=== PATIENT | male | born 1940 | race Caucasian/White ===

== ENCOUNTER 2018-05-12 09:30 | Inpatient (IN) | payer MEDICARE ==
[~2018-05-12] VITALS: Ht 180.3 cm; Wt 99.3 kg
[2018-05-12 09:40] VITALS: BP 178/96
[2018-05-12] MEDS ORDERED: COUMADIN7.5 MG PO (09:58)
[2018-05-12] MEDS ORDERED: COUMADIN 5 MG TA5 M1 PO (09:58)
[2018-05-12] MEDS ORDERED: KLOR-CON 1010 MEQ PO (09:59)
[2018-05-12] MEDS ORDERED: CARVEDILOL12.5 MG PO (09:59)
[2018-05-12 10:15] LABS: BE 2.2 mmol/L (-2 to +3); HCO3 26.4 mmol/L (22.0-26.0); PCO2 39.9 mmHg (35.0-45.0); pH 7.439 (7.340-7.450)
[2018-05-12 10:17] LABS: HEMATOCRIT 34.6 % (42.0-52.0); HEMOGLOBIN 11.1 gm/dL (14.0-18.0); MCH 29.1 pg (26.0-34.0); MCHC 32.2 g/dL (28.0-37.0); MCV 90.2 fL (80.0-100.0); MPV 7.7 fl. (7.2-11.1); NUCLEATED RBCS 0 /100WBC; PLATELET COUNT* 165 thou/uL (150-400); RBC 3.84 mil/uL (4.50-6.00)
[2018-05-12 10:18] LABS: PO2 51.6 mmHg (75.0-100.0)
[2018-05-12 10:22] LABS: APTT 39.9 Seconds (25.0-31.3); INR 2.7; PROTIME 27.4 Seconds (9.20-11.50)
[2018-05-12 11:02] LABS: CALCIUM 8.5 mg/dL (8.5-10.1); CREATININE 1.1 mg/dL (0.6-1.3); POTASSIUM 4.1 mmol/L (3.5-5.1)
[2018-05-12 11:07] LABS: ALBUMIN 3.2 g/dL (3.4-5.0); TOTAL BILIRUBIN 1.3 mg/dL (<0.1-1.0); TOTAL PROTEIN 8.5 g/dL (6.4-8.2)
[2018-05-12 11:41] LABS: ABSOLUTE BASOPHILS 0.1 thou/uL (0.0-0.2); ABSOLUTE EOSINOPHILS 0.1 thou/uL (0.0-0.7); ABSOLUTE LYMPHOCYTES 0.3 thou/uL (0.8-5.3); ABSOLUTE MONOCYTES 0.3 thou/uL (0.0-1.2); ABSOLUTE NEUTROPHILS 4.4 thou/uL (1.6-8.1); PLATELET ESTIMATE ADEQUATE
[2018-05-12 11:42] LABS: HYPOCHROMASIA Occasional; MACROCYTES Occasional
[2018-05-12 11:43] LABS: CLUMPED PLTS RARE; POLYCHROMASIA 1+
[2018-05-12 12:27] LABS: NT-PRO BRAIN NAT PEPTIDE 1718 pg/mL (<300); TROPONIN-I LEVEL <0.06 ng/mL (<0.06)
--- NOTE | 2018-05-12 14:39 | EKG ---
[place] [address] ELECTROCARDIOGRAM REPORT Name: QASIM CABA Room: [place] [address] ADM IN [facility].#: [id number] Admission: 05/12/18 Attend Phys: Nils Patino MD Discharge: Date of : 36 Report #: [id number] THIS REPORT FOR: //name// [facility] ED Test Date: 2018-05-12 Test Time: 09:42:28 Pat Name: QASIM CABA Department: Room: [facility] Gender: Talent Manager: Matthew HERCULES : 1940 Requested By: Sandie Rogers Order Number: [id number] MD: Urbano Frederick Measurements Intervals [place] Rate: 96 P: [place]: QRS: -41 QRSD: 112 T: 133 QT: 385 QTc: 487 Interpretive Statements Atrial fibrillation LAFB Borderline prolonged QT interval No previous ECG available for comparison Electronically Signed On 05-12-2018 14:38:52 TRENCH P[employer] by Urbano Frederick [email or web address] <ELECTRONICALLY SIGNED> By: Urbano Frederick MD, [facility] 05/12/18 1438 1 1 Urbano Frederick MD, FACC /EPI
--- NOTE | 2018-05-12 15:33 | 2DMMODE ---
[place] [address] 2 D/M-MODE ECHOCARDIOGRAM Name: QASIM CABA Room: [address] IN [facility]#: [id number] Admission: 05/12/18 Attend Phys: Nils Patino, Discharge: Date of : 36 Date of Service: 05/12/18 1533 Report #: [id number] THIS REPORT FOR: //name// ADDENDUM APPROVED REPORT Study performed: 05/12/2018 14:14:27 EXAM: Comprehensive 2D, Doppler, and color-flow Echocardiogram Patient Location: In-Patient Room #: er Status: routine BSA: 2.26 HR: 89 bpm BP: 171/94 mmHg Rhythm: NSR Other Information Study Quality: Good Indications CVA/TIA Echo Enhancing Agent Indication: Rule out Shunt Agent(s) / Amount(s) Used: Agitated Saline 10 cc 2D Dimensions IVSd: 13.69 (7-11mm) LVOT Diam: 23.52 (18-24mm) LVDd: 53.05 mm PWd: 13.57 (7-11mm) Ascending Ao: 40.13 (22-36mm) LVDs: 40.21 (25-40mm) Aortic Root: 34.78 mm Volumes Left Atrial Volume (Systole) LA ESV Index: 70.10 mL/m2 Aortic Valve AoV Peak Dusty.: 2.39 m/s AO Peak Gr.: 22.77 mmHg LVOT Max P.35 mmHg AO Mean Gr.: 12.66 mmHg LVOT Mean P.68 mmHg LVOT Max V: 0.58 m/s AO V2 VTI: 44.36 cm LVOT Mean V: 0.38 m/s JOSIAH (VTI): 1.13 cm2 LVOT V1 VTI: 11.49 [place] [address] 2 D/M-MODE ECHOCARDIOGRAM Name: QASIM CABA Room: [address] IN [facility]#: [id number] Admission: 05/12/18 Attend Phys: Nils Patino, Discharge: Date of : 36 Date of Service: 05/12/18 1533 Report #: [id number] Mitral Valve MV Mean Gr.: 5.72 mmHg MV Decel. Time: 123.71 ms MV PHT: 35.88 ms MVA (PHT): 6.13 cm2 TDI Medial E' Dusty.: 0.08 m/s Lateral E' Dusty.: 0.10 m/s Pulmonary Valve PV Peak Dusty.: 0.94 m/s PV Peak Gr.: 3.51 mmHg Tricuspid Valve RAP Estimate: 15.00 mmHg TR Peak Gr.: 54.26 mmHg RVSP: 69.00 mmHg PA Pressure: 69.00 mmHg Left Ventricle The left ventricle is normal size. There is normal LV segmental wall motion. Mild concentric left ventricular hypertrophy. Left ventricular systolic function is normal. LVEF is 50-55%. This study is not technically sufficient to allow evaluation of the LV diastolic function due to atrial fibrillation. Right Ventricle Right ventricle is moderately dilated. The right ventricular systolic function is normal. Atria Left atrium is severely dilated. Interatrial septum is intact without evidence of ASD or PFO. Right atrium is moderately dilated. Aortic Valve Severe aortic valve sclerosis. No aortic regurgitation is present. Severe aortic stenosis. Mitral Valve The mitral valve is normal in structure. 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 There is no mitral valve regurgitation noted. No evidence of mitral valve stenosis. Tricuspid Valve The tricuspid valve is normal in structure. Mild tricuspid regurgitation. [place] [address] 2 D/M-MODE ECHOCARDIOGRAM Name: ROSALESQASIM D Room: [address] IN [facility]#: [id number] Admission: 05/12/18 Attend Phys: Nils Patino, Discharge: Date of : 36 Date of Service: 05/12/18 1533 Report #: [id number] Pulmonic Valve The pulmonary valve is normal in structure. Mild pulmonic regurgitation. Great Vessels The aortic root is normal in size. The ascending aorta is mildly dilated. IVC is dilated and collapses <50% with inspiration. Pericardium There is no pericardial effusion. <Conclusion> The left ventricle is normal size. Mild concentric left ventricular hypertrophy. Left ventricular systolic function is normal. LVEF is 50-55%. Right ventricle is moderately dilated. Left atrium is severely dilated. Right atrium is moderately dilated. Severe aortic valve sclerosis. Severe aortic stenosis. 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 There is no mitral valve regurgitation noted. No evidence of mitral valve stenosis. Mild tricuspid regurgitation. Severe pulmonary hypertension. IVC is dilated and collapses <50% with inspiration. Interatrial septum is intact without evidence of ASD or PFO. The ascending aorta is mildly dilated. <ELECTRONICALLY SIGNED> By: Isac Santa MD, FACC 05/12/18 1533 [id number] Isac Santa MD, FACC /INF
[2018-05-12 17:08] VITALS: BP 162/75
[2018-05-12 17:45] VITALS: BP 128/70
[2018-05-12 19:00] LABS: URINE BILIRUBIN NEGATIVE (Negative); URINE BLOOD 3+ (Negative); URINE COLOR YELLOW; URINE GLUCOSE-RANDOM NEGATIVE (Negative); URINE KETONES NEGATIVE (Negative); URINE LEUKOCYTES-REFLEX NEGATIVE (Negative); URINE NITRITE-REFLEX NEGATIVE (Negative); URINE PROTEIN NEGATIVE (Negative); URINE SPECIFIC GRAVITY 1.015 (1.005-1.030); URINE UROBILINOGEN 0.2 E.U./dl (0.2-1.0)
[2018-05-12 19:01] LABS: URINE CLARITY HAZY
[2018-05-12 19:11] LABS: SQUAMOUS 4-10 Moderate /LPF (0-3)
[2018-05-12 19:12] LABS: BACTERIA-REFLEX 1-9 Few /HPF (None Seen); CASTS None Seen /LPF (None Seen); CRYSTALS None Seen /LPF (None Seen); URINE RBC >20 Many /HPF (0-2); URINE WBC-REFLEX 6-15 Few /HPF (0-5)
[2018-05-12] MEDS ORDERED: FUROSEMIDE 40 M40 M1 PO (19:43)
[2018-05-12 21:02] VITALS: BP 108/70
[2018-05-12 22:11] LABS: GLYCOHEMOGLOBIN (HGB A1C) 6.7 % (4.8-5.6)
[2018-05-12 23:01] VITALS: BP 132/75
[2018-05-13 04:00] VITALS: BP 112/71
[2018-05-13 04:43] LABS: HEMATOCRIT 32.2 % (42.0-52.0); HEMOGLOBIN 10.3 gm/dL (14.0-18.0); MCH 29.1 pg (26.0-34.0); MCHC 32.1 g/dL (28.0-37.0); MCV 90.8 fL (80.0-100.0); MPV 7.5 fl. (7.2-11.1); RBC 3.54 mil/uL (4.50-6.00); RDW-CV 18.9 % (10.5-14.5); WBC 5.3 thou/uL (4.0-11.0)
[2018-05-13 05:09] LABS: CHOLESTEROL 109 mg/dL (<200); HDL CHOLESTEROL 31 mg/dL (>40); LDL CHOLESTEROL 67 mg/dL (<100); TC:HDL 3.5 Ratio (Not establshd); TRIGLYCERIDE 56 mg/dL (<150); VLDL 11 mg/dL (<40)
[2018-05-13 05:11] LABS: SERUM ASSESSMENT Clear
[2018-05-13 05:12] LABS: CALCIUM 8.4 mg/dL (8.5-10.1); POTASSIUM 3.6 mmol/L (3.5-5.1)
[2018-05-13 08:00] VITALS: BP 138/75
[2018-05-13 12:00] VITALS: BP 94/54
[2018-05-13 15:36] VITALS: BP 122/66
[2018-05-13 20:00] VITALS: BP 107/56
[2018-05-14] VITALS (7 sets, daily range): BP systolic 87–139; BP diastolic 48–72
[2018-05-14 05:30] LABS: PROTIME 20.1 Seconds (9.20-11.50)
[2018-05-14 05:36] LABS: CALCIUM 8.1 mg/dL (8.5-10.1)
--- NOTE | 2018-05-14 10:08 | CON ---
[facility] [address] [place] [address] CONSULTATION Name: QASIM CABA Room: [address] IN .R.#: [id number] Admission: 05/12/18 Attend Phys: Nils Patino MD Discharge: Date of : 36 Report #: [id number] THIS REPORT FOR: //name// CC: IVY physician/PCP Nils Sifuentes DATE OF SERVICE: 05/13/2018 CARDIOLOGY CONSULTATION HISTORY OF PRESENT ILLNESS: The patient is an 78-year-old single white male who I was asked to see in the hospital today after he had a syncopal spell. Unfortunately, no old records are available. The patient states that about 10 years ago, he was short of breath. He apparently underwent 5-vessel coronary artery bypass surgery and valve replacement using a metallic valve. He has been on warfarin since that time. He is currently followed by Dr. Sifuentes at [facility]. He stays fairly active, work in his car shop. He denies recent chest pain, shortness of breath. He has had an irregular heartbeat in the past. He last saw Dr. Sifuentes about 6 months ago, at which time he apparently had an echocardiogram. He was doing well until 2 nights ago. He apparently tripped and fell in the living room. He then went to bed. When he got up during the night, he went to the bathroom. He urinated sitting down. When he got up, he apparently had a syncopal spell and fell to the ground. He struck his hip and his elbow. His son brought him to the Emergency Room. He was admitted for further evaluation and treatment. He denied any recent vomiting, bleeding. He denied any palpitations or seizure activity. PAST MEDICAL HISTORY: Significant only for an appendectomy. He has a history of hypertension and hyperlipidemia. MEDICATIONS: On admission included warfarin, carvedilol. He takes Lasix for occasional edema and potassium pill. ALLERGIES: He has an intolerance to STATIN DRUGS AND PENICILLIN. FAMILY HISTORY: Positive for heart disease. SOCIAL HISTORY: He is , lives with a son in [place]. He still works at his car shop. No smoking or alcohol abuse. REVIEW OF SYSTEMS: He apparently had a stroke several years ago affecting his hearing. He has had no history of asthma, peptic ulcer disease, liver disease, kidney disease, cancer, psychiatric illness. He does have chronic edema. PHYSICAL EXAMINATION: [place] [address] CONSULTATION Name: QASIM CABA Room: [address]#: [id number] Admission: 05/12/18 Attend Phys: Nils Patino MD Discharge: Date of : 36 Report #: [id number] GENERAL: Revealed an elderly male, lying in bed. He appeared in no distress. VITAL SIGNS: He had a blood pressure of 140/70, pulse 70, he is afebrile. HEENT: He was anicteric. Conjunctivae pink. Mucous membranes moist. NECK: Veins do not appear distended. No carotid bruits. Neck supple. CHEST: Clear to auscultation. CARDIOVASCULAR: Regular rate and rhythm, metallic aortic opening and closing sound, grade 2 systolic ejection murmur. ABDOMEN: Soft. EXTREMITIES: He dad pitting edema below the mid tibial area. SKIN: He had a dusky skin on anterior tibial area. NEUROLOGIC: He is very slow moving. His ECG on admission appeared to show atrial fibrillation with a controlled ventricular response rate. His workup so far, he has actually had an echocardiogram done yesterday here at [facility] after his admission that showed left ventricular hypertrophy, ejection fraction 55%, biatrial enlargement. There was evidence of a previous mitral valve prosthesis with a mean gradient of 5 mmHg. There was evidence of aortic stenosis with a 22 mm gradient across the aortic valve. The right ventricle is dilated. There is no mitral regurgitation, nor stenosis of the mitral valve prosthesis. There was severe pulmonary hypertension noted with a pulmonary artery systolic pressure of over 60 mmHg. Bubble study showed no evidence of a shunt. His x-rays so far, CT scan of the head without contrast showed no acute abnormality. Chest x-ray showed cardiomegaly, chronic interstitial lung markings, small effusions. CT scan of the chest using a PE protocol, no definite pulmonary embolus, pulmonary edema noted, extensive coronary artery calcifications. Carotid Doppler study showed no significant stenosis. LABORATORY DATA: BUN 21, creatinine 1.0, potassium 3.6. Troponin 0.06. BNP 1718, LDL 67. TSH 3.3. His INR on admission was 2.7. White blood cell count 5.3, hemoglobin 11.1, hematocrit 34.6. He had a urinalysis showing white blood cells, 3+ blood, many rbc's, few bacteria, moderate squamous cells. IMPRESSION AND RECOMMENDATIONS: 1. Syncope. Reason unclear. I would consider discharging the patient with an event recorder. 2. Previous coronary artery bypass surgery. Since the patient is on warfarin, I would not recommend aspirin. The patient has had no significant angina recently. 3. Previous mitral valve replacement. I would continue chronic anticoagulation, maintain an INR of 2.5-3.0. 4. Chronic atrial fibrillation. Rate controlled with beta-yumiko. The patient is anticoagulated. [address] [place] [address] CONSULTATION Name: QASIM CABA Room: [address] IN ..#: [id number] Admission: 05/12/18 Attend Phys: Nils Patino MD Discharge: Date of : 36 Report #: [id number] 5. Chronic edema. The patient is on diuretics. 6. Mild aortic stenosis. <ELECTRONICALLY SIGNED> By: Urbano Frederick MD, FACC 05/14/18 1008 1414 1848Dadevora Frederick MD, FACC /nt
--- NOTE | 2018-05-14 10:52 | CON ---
[facility] [address] [place] [address] CONSULTATION Name: QASIM CABA Room: [address] IN .R.#: [id number] Admission: 05/12/18 Attend Phys: Nils Patino MD Discharge: Date of : 36 Report #: [id number] THIS REPORT FOR: //name// CC: IVY physician/PCP Nils Sifuentes NEUROLOGY CONSULTATION HISTORY OF PRESENT ILLNESS: The patient is an 78-year-old male who came to the Emergency Room after falling. The patient states that during this event, there was no loss of consciousness. He just remembers falling to the ground. He thought he might have tripped. Reading the information from the Emergency Room, there were 2 falls and in the second fall, there was loss of consciousness. I specifically asked the patient if he lost consciousness when he fell and he denied this. Apparently, the patient now has hip pain and a pelvic fracture. When he came to the Emergency Room, he was also found to be hypoxic with a pO2 of 51.6 and an oxygen saturation of 83%. The patient could really provide no other history or insight as to what had happened yesterday. PAST MEDICAL HISTORY: Congestive heart failure, coronary artery disease, atrial fibrillation. PAST SURGICAL HISTORY: Coronary artery bypass graft, mitral valve replacement, appendectomy. MEDICATIONS AT HOME: Warfarin 10 mg daily, alternating with 7.5 mg; Coreg 6.25 mg twice a day, potassium 20 mEq daily. ALLERGIES: PENICILLIN. PHYSICAL EXAMINATION: VITAL SIGNS: Temperature is 36.6, pulse rate 77, respiratory rate 17, blood pressure 94/54, bedside pulse oximetry 95% on 3 L nasal cannula. NEUROLOGIC: Cranial nerves 2-12 are grossly intact. Motor exam demonstrates symmetrical strength in all 4 extremities with tone and bulk normal. Reflexes are trace in the upper extremities, absent in the lower extremities. Plantar responses are flexor. Coordination demonstrates no evidence of dysmetria. LABORATORY DATA: White blood cell count 5.3, hemoglobin 10.3, hematocrit 32.2, platelet count 165,000. INR 2.7. Urinalysis: 3+ blood, many rbc's, few wbc's. Blood gas: pH 7.439, pCO2 of 39.9, pO2 of 51.6, oxygen saturation 83.2%. Chemistry: Sodium 139, potassium 3.6, chloride 102, carbon dioxide 31, BUN 21, creatinine 1, GFR 72, glucose 141. Hemoglobin A1c 6.7. Lactic acid 1.3, calcium 8.4, magnesium 2, bilirubin 1.3, AST 42, ALT 33, alkaline phosphatase 96, total protein 8.5, albumin 3.2. Triglycerides 56, cholesterol 109, LDL [facility] [address] [place] [address] CONSULTATION Name: QASIM CABA Room: [address] IN [facility]#: [id number] Admission: 05/12/18 Attend Phys: Nils Patino MD Discharge: Date of : 36 Report #: [id number] cholesterol 67, HDL cholesterol 31. B12 of 294, folate 19.4. TSH 3.319. IMPRESSION: This patient has had 2 falls. He may have peripheral neuropathy. His B12 is 294 and I have ordered B12 1000 mcg daily for the next 2 or 3 days depending on how long he stays in the hospital. Reviewing the patient's record, he has heart disease. The echocardiogram shows severe aortic stenosis, amongst other abnormalities. Perhaps, the patient would benefit from a Cardiology consultation. Earlier today, he had a low blood pressure reading. I would recommend an EMG as an outpatient. When he goes home, he should be on B12 supplementation, which can probably be given orally as 500 mg twice a day with the understanding that in the next month or two, the B12 level should be repeated. The patient is now dealing with the consequences of the fall, which include the pelvic fracture. When I spoke to him, he was sitting at the bedside and not complaining of pain. I thank you for your kind referral of the patient. <ELECTRONICALLY SIGNED> By: Claudette Begum DO 05/14/18 1052 1254 [id number] Begum DO /nt
[2018-05-15] VITALS: BP 166/61
[2018-05-15 04:00] VITALS: BP 148/73
[2018-05-15 05:24] LABS: HEMATOCRIT 31.6 % (42.0-52.0); HEMOGLOBIN 10.3 gm/dL (14.0-18.0); MCH 29.8 pg (26.0-34.0); MCHC 32.8 g/dL (28.0-37.0); MCV 90.8 fL (80.0-100.0); MPV 7.8 fl. (7.2-11.1); RBC 3.48 mil/uL (4.50-6.00); RDW-CV 18.7 % (10.5-14.5); WBC 3.7 thou/uL (4.0-11.0)
[2018-05-15 05:41] LABS: INR 1.9; PROTIME 19.1 Seconds (9.20-11.50)
[2018-05-15 05:48] LABS: CALCIUM 8.1 mg/dL (8.5-10.1); CREATININE 0.9 mg/dL (0.6-1.3); POTASSIUM 4.2 mmol/L (3.5-5.1)
[2018-05-15 08:40] VITALS: BP 111/71; BP 121/73; BP 135/75
--- NOTE | 2018-05-15 10:50 | CON ---
[facility] [address] [place] [address] CONSULTATION Name: QASIM CABA Room: [address] IN .R.#: [id number] Admission: 05/12/18 Attend Phys: Nils Patino MD Discharge: Date of : 36 Report #: [id number] THIS REPORT FOR: //name// CC: IVY physician/PCP Nils Sifuentes DATE OF SERVICE: 05/13/2018 REASON FOR CONSULTATION: Hemoptysis. HISTORY OF PRESENT ILLNESS: The patient is an 78-year-old gentleman who was admitted with syncope. He had subsequent fall on 05/11/2018. He was admitted with right hip pain. Upon further history, the patient has shortness of breath, has hemoptysis, which has been chronic for the last several months. He states that he is coughing up blood mixed with sputum once a week. He says he was seen before at different hospitals/center points and was told that this is related to his anticoagulation. Denies chest pain, denies wheezing. Since admission yesterday, discussed with nursing staff, he did not have any hemoptysis. He is known to have extensive cardiac history as well. ALLERGIES: ALLERGIC TO PENICILLIN. MEDICATIONS: Reviewed. He is on warfarin. He is on Coreg, potassium, Lasix. CURRENT MEDICATIONS: Reviewed as well. He was started on Rocephin, azithromycin, Coreg, Lasix, vancomycin. REVIEW OF SYSTEMS: CONSTITUTIONAL: Fatigue. Denies fever. HEENT: Dizziness, syncope. RESPIRATORY: As above. Cough, occasional hemoptysis. CARDIOVASCULAR: Syncope as above. GASTROINTESTINAL: Denies. GENITOURINARY: Denies. MUSCULOSKELETAL: Right hip pain. Otherwise, 12-point review of systems as above. PAST MEDICAL HISTORY: Congestive heart failure, hypoxemia, pubic ramus fracture, syncope as above, atrial fibrillation. PAST SURGICAL HISTORY: CABG. FAMILY HISTORY: Noncontributory. SOCIAL HISTORY: He does not smoke [place] [address] CONSULTATION Name: QASIM CABA Room: [address]#: [id number] Admission: 05/12/18 Attend Phys: Nils Patino MD Discharge: Date of : 36 Report #: [id number] PHYSICAL EXAMINATION: GENERAL: The patient was not in distress. Affect is flat. NEUROLOGIC: No focal deficit. VITAL SIGNS: He is afebrile, pulse rate 74, respiratory rate 18, blood pressure 122/66. He is on 3 liters with adequate saturation. HEAD AND NECK: Neck is supple. Oral mucosa clear. Eyes anicteric. CHEST: He has basilar crackles. CARDIOVASCULAR: Normal S1, S2. ABDOMEN: Soft, obese. EXTREMITIES: He has positive edema. SKIN: No changes. LABORATORY DATA AND OTHER DATABASE: White blood cell count normal at 5.3, hemoglobin stable at 10.3, was 11 yesterday. Blood gas, pH of 7.4, pCO2 of 39, pO2 of 51, this was on room air. Currently, his saturation is adequate. A chest CT, which I have reviewed, showed that he has bilateral diffuse heterogeneous ground glass opacities and mosaic attenuation, suspect pulmonary edema, cannot exclude multifocal infection. Chest x-ray shows cardiomegaly, bilateral diffuse pulmonary infiltrate, bilateral small effusion. ASSESSMENT: The patient is an 78-year-old gentleman, with history of congestive heart failure, who presented with hip pain post fall; however, has chronic hemoptysis. We are consulted for further evaluation of his chronic hemoptysis. He is noted to be coagulopathic. Suspect hemoptysis is related to coagulopathy. Currently, his INR is 2.7. A differential diagnosis of hemoptysis includes pulmonary edema. He has chest x-ray that shows pulmonary edema. Other differential diagnosis includes vasculitis, which is less likely and pneumonia, currently on antibiotics. PLAN: 1. For pulmonary edema, recommend diuresis and obtain chest x-ray in the morning. 2. Continue current antibiotics. 3. Obtain ARY, ANCA for evaluation to exclude vasculitis, though it is much less likely as hemoptysis gets worse with supratherapeutic INR. Also, recommend to send sputum for culture as well. <ELECTRONICALLY SIGNED> By: Ancelmo Yanes MD 05/15/18 1050 1620 [id number] Barby Yanes MD /nt
[2018-05-15 12:00] VITALS: BP 151/100
[2018-05-15 16:00] VITALS: BP 138/68
[2018-05-15 20:00] VITALS: BP 141/91
[2018-05-16] VITALS: BP 124/58
[2018-05-16 04:00] VITALS: BP 142/81
[2018-05-16 07:45] VITALS: BP 140/88
[2018-05-16 08:36] LABS: INR 1.9; PROTIME 19.4 Seconds (9.20-11.50)
[2018-05-16 12:00] VITALS: BP 138/75
[2018-05-16] MEDS ORDERED: AZITHROMYCIN 2250 MG PO (12:03)
[2018-05-16] MEDS ORDERED: CEFDINIR300 MG PO (12:03)
[2018-05-16 12:10] LABS: ANA INTERPRETATION Negative (Negative)
[2018-05-16] MEDS ORDERED: ROBITUSSIN100 MG/53 PO (14:09)
[2018-05-16] MEDS ORDERED: TYLENOL325 MG PO (14:14)
[2018-05-16 14:18] VITALS: BP 138/75
== END 2018-05-16 17:43 | disposition home or self-care (01) | DRG 177 ==
LOC: M.ERS 09:30 → M.2W 12:06 → M.TBA-ER 12:06 → M.2W 17:26
PROVIDERS: Family Medicine; Internal Medicine Cardiovascular Disease; Internal Medicine Pulmonary Disease; Personal Emergency Response Attendant; ADMIT Internal Medicine
DX: J69.0 Pneumonitis due to inhalation of food and vomit (principal); J96.01 Acute respiratory failure with hypoxia; I50.33 Acute on chronic diastolic (congestive) heart failure; M80.059A Age-related osteoporosis with current pathological fracture, unspecified femur, initial encounter for fracture; R55 Syncope and collapse; E87.70 Fluid overload, unspecified; D64.9 Anemia, unspecified; I11.0 Hypertensive heart disease with heart failure; E78.5 Hyperlipidemia, unspecified; I48.2 Chronic atrial fibrillation; I25.10 Atherosclerotic heart disease of native coronary artery without angina pectoris; I87.8 Other specified disorders of veins; E66.9 Obesity, unspecified; M40.294 Other kyphosis, thoracic region; I27.20 Pulmonary hypertension, unspecified; I34.0 Nonrheumatic mitral (valve) insufficiency; I35.0 Nonrheumatic aortic (valve) stenosis; E11.42 Type 2 diabetes mellitus with diabetic polyneuropathy; W18.39XA Other fall on same level, initial encounter; Z79.01 Long term (current) use of anticoagulants; Z88.0 Allergy status to penicillin; Z68.30 Body mass index [BMI] 30.0-30.9, adult; Z79.4 Long term (current) use of insulin; Z79.2 Long term (current) use of antibiotics; Z79.899 Other long term (current) drug therapy; Z95.1 Presence of aortocoronary bypass graft; Y93.89 Activity, other specified; Y92.098 Other place in other non-institutional residence as the place of occurrence of the external cause; Y99.8 Other external cause status; Z95.2 Presence of prosthetic heart valve; Z90.49 Acquired absence of other specified parts of digestive tract; Z82.49 Family history of ischemic heart disease and other diseases of the circulatory system